=== PATIENT | female | born 1980 | race Caucasian/White ===

== ENCOUNTER → 2016-10-01 | Outpatient (CLI) | payer BC | LOC: LAB 16:55 | DX: O00.90 Unspecified ectopic pregnancy without intrauterine pregnancy (principal) | CPT/HCPCS: 36415; 84702 ==

== ENCOUNTER → 2016-10-02 | Outpatient (CLI) | payer BC ==
[~2016-10-02] VITALS: Ht 160 cm; Wt 77.0 kg
[2016-10-02 10:46] LABS: HEMOGLOBIN 12.9 gm/dl (12.3-15.3); RED BLOOD COUNT 4.76 M/UL (4.00-5.10); WHITE BLOOD COUNT 8.4 K/UL (4.5-11.0)
== END ==
LOC: OPSV 10:15
PROVIDERS: Obstetrics & Gynecology
DX: Z76.0 Encounter for issue of repeat prescription (principal)
CPT/HCPCS: 80076; 84702; 85027; 96372; J9250